=== PATIENT | female | born 1975 ===

== ENCOUNTER 2021-01-26 11:10 | Emergency (ER) | payer OTHER, SELFPAY ==
[2021-01-26 11:26] VITALS: BP 116/69; PULSE 63; RESP 18; TEMP 36.8; O2SAT 100; BMI 23.9
--- NOTE | 2021-01-26 12:14 | ED_ITS ---
HPI - Ear Problem General Chief complaint: Ear Problems Stated complaint: ear pain Time Seen by Provider: 01/26/21 12:13 Source: patient Limitations: no limitations History of Present Illness HPI Narrative: Patient presents complaining of right-sided ear pain. Patient also having some right-sided headache and sinus pressure and tenderness. Patient also states some slight nasal discharge. Patient has no prior history of ear infection. Patient denies history of diabetes. Pain is 6/10 symptoms moderate. No nausea vomiting sore throat fever chills chest pain shortness of breath at this time. Related Data Previous Rx's Medication Instructions Recorded amoxicillin 500 mg capsule 500 mg PO TID #30 cap 01/26/21 ibuprofen 600 mg tablet 600 mg PO TID PRN #30 tab 01/26/21 Allergies Allergy/AdvReac Type Severity Reaction Status Date / Time No Known Allergies Allergy Verified 01/26/21 11:26 [No Known Allergies*] Review of Systems Constitutional: Constitutional: Denies body ache(s), Denies chills, Denies fatigue, Denies fever(s) and Denies headache(s) Eyes: Eyes: Denies loss of vision ENT: Denies headache(s), Reports sinus pain and Denies sore throat Comments: Right-sided ear pain Cardiovascular: Cardiovascular: Denies chest pain and Denies dyspnea Respiratory: Respiratory: Denies dyspnea Gastrointestinal: Gastrointestinal: Denies nausea and Denies vomiting Neurologic: Denies headache(s) and Denies loss of vision Endocrine: Endocrine: Denies fatigue [facility] Social History Social History Advance Directives: No Advance Directives Information Provided: Yes Patient : No Physical Exam Vital Signs: Vital Signs: Last Vital Signs Temp 98.2 F 01/26/21 11:26 Pulse 63 01/26/21 11:26 Resp 18 01/26/21 11:26 BP 116/69 01/26/21 11:26 Pulse Ox 100 01/26/21 11:26 Body Mass Index 23.9 vital signs have been reviewed as normal and appeared to be correct. Blood pressure normal. Heart rate normal. Respiration rate normal. Temperature normal. Oxygen saturation normal. Appearance: Alert. Oriented X3. No acute distress. Head: Normal external exam. Normocephalic. Atraumatic. Eyes: PERRLA. EOMI. Conjunctiva and sclera normal. Eyelids normal. ENT: Pharynx normal. Uvula midline. Moist mucous membranes. No trismus noted. Right ear TM slightly dull minimal erythema or canal edema. Positive maxillary sinus tenderness right greater than left. Right mastoid nontender Neck: Soft full range of motion CVS: Heart regular rate and rhythm no murmurs and rubs Respiratory: Breath sounds are clear to auscultation bilaterally. No accessory muscle use noted. Back: Full range of motion noted. Skin: Skin warm and dry. Normal skin color. Normal skin turgor. No rashes/lesions/lacerations noted. Extremities: No lower extremity edema. Extremities exhibit normal range of motion. Extremities nontender. Neuro: Oriented X 3. No motor deficit. No sensory deficit. Reflexes normal. Course Course Course Narrative: Right otitis media Right otitis externa Sinusitis Viral syndrome URI Symptoms consistent with sinusitis versus a very early right otitis media. Will treat accordingly. No other complaints this time Discharge Plan Discharge Clinical Impression: Otitis media Qualifiers: Otitis media type: unspecified Chronicity: acute Qualified Code(s): H66.90 - Otitis media, unspecified, unspecified ear Patient Disposition: Home, Self-Care Instructions: Ear Infection (ED) Prescriptions: New amoxicillin 500 mg capsule 500 mg PO TID Qty: 30 RF: 0 ibuprofen 600 mg tablet 600 mg PO TID PRN (Reason: pain) Qty: 30 RF: 0 Print Language: [place] Citizen
== END 2021-01-26 12:39 | disposition home or self-care (01) ==
PROVIDERS: Emergency Provider Emergency Medicine; PCP Psychiatry & Neurology Neurology
DX: H66.91 Otitis media, unspecified, right ear (principal)
CPT/HCPCS: 99283

== ENCOUNTER 2021-04-01 10:26 | Emergency (ER) | payer OTHER, SELFPAY ==
[2021-04-01 11:17] VITALS: BP 136/59; PULSE 62; RESP 18; TEMP 36.9; O2SAT 100; BMI 23.3
[2021-04-01] MEDS: Ondansetron ODT 4 MG TAB.RAPDIS TRANSLINGU (11:20)
== END 2021-04-01 22:01 | disposition left against medical advice (07) ==
PROVIDERS: Emergency Provider Emergency Medicine
DX: R10.9 Unspecified abdominal pain (principal); R11.2 Nausea with vomiting, unspecified
CPT/HCPCS: 99282

== ENCOUNTER 2022-07-09 10:42 | Outpatient (REF) | payer MEDICAID, SELFPAY ==
--- NOTE | ~2022-07-09 | MM_ITS ---
EXAMINATION: MM SCREENING DIGITAL BREAST TOMOSYNTHESIS, BILATERAL CLINICAL INFORMATION: Screening. Asymptomatic. The lifetime risk of breast cancer based on the Tyrer-Cuzick Model is 15.3%. COMPARISON: Mammography: August 03, 2020 and studies dating back to February 28, 2017 TECHNIQUE: Digital breast tomosynthesis is performed in both the craniocaudal and mediolateral oblique views along with computer-aided detection (CAD). Synthesized 2D images are generated from the tomosynthesis. FINDINGS: There are scattered areas of fibroglandular density (ACR BI-RADS breast composition Category b). There are no new significant masses, abnormal calcifications, or other abnormalities. MM/MM tomosynthesis screening BI IMPRESSION: No significant changes ASSESSMENT: BI-RADS 1: Negative RECOMMENDATION: Routine annual mammography screening. This patient's information was entered into a reminder system with a target due date for their next mammogram.
== END 2022-07-09 10:43 | disposition home or self-care (01) ==
LOC: HO.MAMMO 10:42
PROVIDERS: Visit Provider Physician Assistant
DX: Z12.31 Encounter for screening mammogram for malignant neoplasm of breast (principal)
CPT/HCPCS: 77063; 77067

== ENCOUNTER 2023-09-05 11:18 | Outpatient (REF) | payer MEDICAID, SELFPAY | END 2023-09-05 11:19 | disposition home or self-care (01) | LOC: HO.MAMMO 11:18 | PROVIDERS: Visit Provider Physician Assistant | DX: Z12.31 Encounter for screening mammogram for malignant neoplasm of breast (principal) | CPT/HCPCS: 77063; 77067 ==

== ENCOUNTER → 2023-09-05 11:45 | Outpatient (BNV) | payer MEDICAID, SELFPAY | PROVIDERS: Visit Provider Radiology Diagnostic Radiology | DX: Z12.31 Encounter for screening mammogram for malignant neoplasm of breast (principal) | CPT/HCPCS: 77063; 77067 ==

== ENCOUNTER 2023-12-26 07:24 | Emergency (ER) | payer MEDICAID, SELFPAY ==
[2023-12-26 07:27] VITALS: BP 137/48; PULSE 58; RESP 20; TEMP 36.3; O2SAT 99; BMI 26.5
[2023-12-26 09:11] LABS: Influenza A PCR NEGATIVE (Negative); Influenza B PCR NEGATIVE (Negative); Resp Syncy Virus RNA Qual PCR NEGATIVE (Negative); SARS COV2 PCR INHOUSE NEGATIVE (Negative)
--- NOTE | 2023-12-26 10:33 | ED_ITS ---
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 Taking Motrin at home with minimal relief. No known sick contacts. Denies fever, chills, sore throat, cough, sputum production, headache, dizziness, ear pain/ discharge/ hearing changes. Related Data Previous Rx's ?Medication ?Instructions ?Recorded amoxicillin 500 mg capsule 500 mg PO TID #30 caps 01/26/21 ibuprofen 600 mg tablet 600 mg PO TID PRN pain #30 tabs 01/26/21 cetirizine 10 mg tablet (Zyrtec) 10 mg PO DAILY PRN allergy 12/26/23 symptoms #10 tabs fluticasone propionate 50 2 spray intranasal DAILY 7 days 12/26/23 mcg/actuation nasal #16 grams spray,suspension (Flonase Allergy Relief) Allergies Allergy/AdvReac Type Severity Reaction Status Date / Time No Known Allergies Allergy Verified 12/26/23 07:28 [No Known Allergies*] Review of Systems Review of Systems: Yes all other systems are reviewed and are negative PMFSH Past Medical History Attestation statement: The following information was validated with the patient. Source: old records reviewed and nursing notes reviewed Medical History No pertinent past medical history Social History Social History Advance Directives: No Advance Directives Information Provided: Yes Physical Exam Vital Signs: Vital Signs: Last Vital Signs Temp 97.4 F 12/26/23 11:04 Pulse 58 12/26/23 11:04 Resp 18 12/26/23 11:04 BP 137/48 L 12/26/23 11:04 Pulse Ox 99 12/26/23 11:04 O2 Del Method Room Air 12/26/23 11:04 BMI result Body Mass Index 26.5 Vital signs stable, afebrile General: Well appearing, in no acute distress. Skin: Warm, dry, intact. No rashes or lesions. Head: Normocephalic, atraumatic. TTP over b/l maxillary sinuses. EENT: Hearing is intact b/l. Conjunctiva clear. PERRLA. EOM intact. Moist mucous membranes.? Neck: Supple without LAD. Cardiac: Chest wall symmetric. RRR. Lungs: Normal respiratory effort without accessory muscle use. CTA bilaterally. No rales, rhonchi, or wheezes.? Ext: Upper and lower extremities atraumatic, without tenderness, deformity, swelling or erythema. Full ROM throughout. Neuro: AOx3. Normal speech. Sensation intact to light touch. NV intact distally. Ambulating with steady gait. Psych: Appropriate mood and affect. Responds appropriately to questions. Course Course Course Narrative: 1036 -- patient tested negative for COVID, flu, RSV. Strep throat unlikely. Centor criteria 0. no testing warranted at this time. > will send patient home with flonase and zyrtec for suspected rhinosinusitis. Patient has remained stable throughout ED visit today. Discussed worrisome signs and symptoms and when to return to the ED. All questions answered at this time. Patient is agreeable with disposition and stable for discharge. Medications Administered Discontinued Medications Generic Name Dose Route Start Last Admin Trade Name Freq PRN Reason Stop Dose Admin Ketorolac Tromethamine 30 mg 12/26/23 10:54 12/26/23 11:04 Ketorolac Tromethamine 30 Mg/Ml Vial IM 12/26/23 10:55 30 mg ONCE ONE Administration Medical Decision Making Medical Decision Making [facility] Narrative: 48 year old Jamaican speaking female with no significant pmhx presents to the ED today for evaluation of nasal congestion/ sinus pain x3 days. Vital signs stable, afebrile. She is nontoxic appearing in no acute distress. Noted nasal congestion on exam, tender to palpation over maxillary sinuses. No tenderness to palpation over frontal sinus. Bilateral EACs and TMs WNL. Posterior oropharynx WNL. Lungs clear. Differential diagnosis includes viral syndrome, allergic rhinitis, rhinosinusitis. Lower suspicion for bacterial sinusitis, abscess, osteo. Plan for viral serology, pain control, re-evaluation. Differential Diagnosis Differential Diagnoses: The differential diagnosis associated with the presentation includes As above Admission/Observation Not indicated Lab Data [facility] Lab Attestation statement: I reviewed the patient's lab results. As above Labs: Lab Results 12/26/23 Range/Units 08:12 Influenza Type A (PCR) NEGATIVE (Negative) Influenza Type B (PCR) NEGATIVE (Negative) RSV RNA Qual (PCR) NEGATIVE (Negative) SARS-CoV-2 RNA (RT-PCR) NEGATIVE (Negative) External Record Review External record reviewed: Inpatient record Prescription Management I considered prescription management with: Pain Medication (Tylenol, ibuprofen) and Other (Flonase, Zyrtec) Social Determinants Patient?s care significantly limited by Social Determinants of Health including: Other Social Determinant of Health Critical Care Time Critical Care Time Critical Care Time: No Discharge Plan Discharge Clinical Impression: Acute rhinosinusitis Patient Disposition: Home, Self-Care Instructions: Rhinosinusitis (ED) Additional Instructions: You tested negative for covid, flu, and rsv. Your exam is consistent with rhinosinusitis. Flonase nasal spray has been sent to your pharmacy. [place] 2 sprays into your nose daily x1 week. Do not use for longer than one week or you may experience rebound congestion. Zyrtec is an antihistamine that has been sent to your pharmacy. Take 1 tab daily as needed. I recommend you take 600mg ibuprofen every 6 hours or Tylenol 650mg every 6 hours as needed for pain. If needed, you can alternate these medications so that you take one medication every 3 hours. For example, at noon take ibuprofen, then at 3pm take Tylenol, then at 6pm take ibuprofen. Follow up with PCP if symptoms persist. Return with new or worsening symptoms. In the case of an emergency call 911. Prescriptions: New cetirizine [Zyrtec] 10 mg tablet 10 mg PO DAILY PRN (Reason: allergy symptoms) Qty: 10 0RF fluticasone propionate [Flonase Allergy Relief] 50 mcg/actuation s pray,suspension 2 spray intranasal DAILY 7 Days Qty: 16 0RF Rx Instructions: administer into each nostril No Action amoxicillin 500 mg capsule 500 mg PO TID Qty: 30 0RF ibuprofen 600 mg tablet 600 mg PO TID PRN (Reason: pain) Qty: 30 0RF Referrals: [facility] [place] Family Medicine [Provider Group] [facility] [place] [facility] [Provider Group] [facility] [place] [facility] [Provider Group] Interventions: ED Discharge Assessment Last Done: 12/26/23 11:04 Discharge Date/Time: 12/26/23 11:05 Print Language: [place]ican
[2023-12-26 11:04] VITALS: BP 137/48; PULSE 58; RESP 18; TEMP 36.3; O2SAT 99
[2023-12-26] MEDS: Ketorolac Tromethamine 30 MG/ML VIAL IM (11:04)
== END 2023-12-26 11:05 | disposition home or self-care (01) ==
PROVIDERS: Emergency Provider Emergency Medicine
DX: J01.90 Acute sinusitis, unspecified (principal); R09.81 Nasal congestion; R51.9 Headache, unspecified; Z03.818 Encounter for observation for suspected exposure to other biological agents ruled out
CPT/HCPCS: 0241U; 96372; 99283; 99284; J1885

== ENCOUNTER 2024-09-10 10:55 | Outpatient (REF) | payer MEDICAID, SELFPAY ==
--- OUTSIDE RECORDS SUMMARY | 2024-09-10 12:59 | XMS_ITS | Clinical Summary ---
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 Name Role Phone Nereyda Guerrero PA-C Primary Care Provider [phone] Source Comments PLEASE NOTE, if this patient is a minor, it may be UNLAWFUL to discuss sensitive information that is contained in these records (such as FAMILY PLANNING, MENTAL HEALTH or SUBSTANCE ABUSE) with the minor patient's parent or other person without the patient's specific authorization.[facility] Allergies No known active allergies Medications ciprofloxacin-hydr ocortisone (CIPRO HC OTIC) 0.2-1 % otic suspensionIndicati ons:Acute otitis externa of left ear, unspecified type Place 3 Drops into the left ear 2 (two) times daily 10 mL 3 Active meloxicam (MOBIC) 15 mg tabletIndications: Polyarthralgia,Chr onic midline low back pain without sciatica Take 1 Tablet by mouth once daily as needed for pain 90 Tablet 1 3 Active nicotine (NICODERM, STEP 1) 21 mg/24 hr patchIndications:T obacco use Place 1 Patch onto the skin once daily (every 24 hours) For 6 weeks, followed by 14 mg for 2 weeks and 7 mg for 2 weeks. 42 Patch 4 Active nicotine (NICODERM, STEP 2) 14 mg/24 hr patchIndications:T obacco use Place 1 Patch onto the skin once daily (every 24 hours) For 2 weeks, followed by 7 mg for 2 weeks (keep on hold until pt has completed 21 mg) 14 Patch 4 Active nicotine (NICODERM, STEP 3) 7 mg/24 hr patchIndications:T obacco use Place 1 Patch onto the skin once daily (every 24 hours) For 2 weeks. 14 Patch 4 Active nicotine polacrilex (COMMIT) 4 mg lozengeIndications :Tobacco use Dissolve 1 lozenge by mouth every 1-2 hours as needed for nicotine cravings (max 10 pieces per day) 72 Lozenge 2 4 Active nicotine polacrilex (COMMIT) [address] 1 Lozenge inside cheek every 2 to 4 (two to four) hours as needed for smoking cessation Weeks 1-6: Use 1 lozenge every 1-2 hours. Weeks 7-9: Use 1 lozenge every 2-4 hours. Weeks 10-12: Use 1 lozenge every 4-8 hours. (minimum: 9 lozenges/day for first 6 weeks; maximum: 20 pieces/day during entire regimen). 72 Lozenge 1 4 Active diclofenac sodium (VOLTAREN) 1 % gelIndications:Chr onic midline low back pain without sciatica Apply 2 g topically 2 (two) times daily 100 g 11 5 Active melatonin 3 mg tabletIndications: Primary insomnia Take 1 Tablet by mouth nightly at bedtime as needed for sleep 90 Tablet 3 5 Active lidocaine (LIDODERM) 5 % patchIndications:C hronic midline low back pain with bilateral sciatica Place 1 Patch onto the skin daily. Apply 1 patch to the affected area for a maximum of 12 hours, followed by removal for 12 hours. 30 Patch 5 Active cyclobenzaprine (FLEXERIL) 10 mg tabletIndications: Chronic midline low back pain with bilateral sciatica Take 1 Tablet by mouth 3 (three) times daily as needed for muscle spasms MAY CAUSE DROWSINESS, do not operate heavy machinery until you know the effects of this medication on you 90 Tablet 5 Active ondansetron ODT (ZOFRAN-ODT) 4 mg disintegrating tabletIndications: Gastroenteritis Take 1 Tablet by mouth every 8 (eight) hours as needed for nausea 12 Tablet 5 Active dicyclomine (BENTYL) 10 mg capsuleIndications :Gastroenteritis Take 1 Capsule by mouth 3 (three) times daily 30 Capsule 5 Active predniSONE 50 mg tabletIndications: Allergic rhinitis, unspecified seasonality, unspecified trigger Take 1 Tablet by mouth once daily 5 Tablet 5 Active diphenhydrAMINE (BENADRYL) 50 mg capsuleIndications :Allergic rhinitis, unspecified seasonality, unspecified trigger Take 1 Capsule by mouth nightly at bedtime as needed for allergies, itching or rhinitis 90 Capsule 5 Active Active Problems Problem Noted Date Diagnosed Date Tobacco use 01/15/2023 Functional constipation 07/11/2020 PTSD (post-traumatic stress disorder) 08/04/2019 Opioid use disorder, moderat e, on maintenance therapy ([facility]) 08/04/[address] scan of abdomen 12/20/2015 04/19/19 17 Overview (04/19/2016): Result type: CT Abdomen and Pelvis W/ Contrast Result date: December 20, 2015 21:36 Result status: Auth (Verified) Result title: CT Abdomen and Pelvis W/ Contrast Performed by: Harshad Denney MD on December 20, 2015 23:21 Verified by: Sharad Gonzalez MD on December 20, 2015 23:26 Encounter info: [id number], [facility], Marcel Obv, 12/20/2015 - 12/22/2015 * Final Report * Reason For Exam Pain RESULT: CT Abdomen and Pelvis W/ Contrast CT Abdomen and Pelvis W/ Contrast INDICATION: Pain CLINICAL QUESTION: Pancreatitis TECHNIQUE: Spiral CT through the abdomen and pelvis with IV contrast formatted in 3 planes. The study was performed without oral contrast. Weight-based protocol using automatic tube modulation was used to optimize exposure parameters. CTDIvol Body: 5.40 mGy, DLP Body: 278 mGy*cm. COMPARISON: None. FINDINGS: Lung Bases: Lung bases are clear. No pleural effusion. Liver: A focal area of low-attenuation along falciform ligament most likely represents focal fatty infiltration. The liver is otherwise unremarkable. Gallbladder: Unremarkable. Bile ducts: No biliary ductal dilation. Spleen: Normal in size and attenuation. Pancreas: Normal. Adrenal Glands: Normal. Kidneys and Ureters: No hydronephrosis. A 4 mm nonobstructing calculus is seen in the upper pole of the right kidney. A 2.6 cm cyst is seen in the upper pole of the right kidney. The left kidney is normal. Bladder: Normal. Stomach, Small bowel and Large Bowel: Normal. Appendix: Normal. Peritoneum, omentum and mesentery: No ascites or pneumoperitoneum. No omental or mesenteric lesions. Lymph nodes: No pathologically enlarged lymph nodes. Blood Vessels: Normal. No aneurysm. No evidence of venous thrombosis. Abdominal wall: Unremarkable. Reproductive organs: Unremarkable. Bones: No acute findings. No destructive bone lesions. A 1 cm sclerotic focus in the L5 vertebral body likely represents a bone island. Thoracic dextroscoliosis and normal lumbar levoscoliosis. IMPRESSION: 1. No acute abdominal or pelvic pathology. The pancreas appears normal. 2. Small nonobstructing calculus and a simple cyst in the upper pole of the right kidney. I have personally reviewed the images and I agree with this report. WSN: [id number] Signature Line Dictated By: Harshad Denney MD Dictated Date/Time: 12/20/15 11:21 p Reviewed By: Sharad Gonzalez MD Signed By: Sharad Gonzalez MD Signed Date/Time: 12/20/15 11:26 pm Transcribed By: LICHA Transcribed Date/Time: 12/20/15 11:[address] Abdomen and Pelvis W/ Contrast This document has an image Marijuana use 04/19/2016 H/O endoscopy 11/18/2014: ga stric mucosa with mild chronic inflammation, non specific, H. pylori negative 11/29/2014 Family history of colon canc er- grandfather and uncle (father's side) 04/30/2014 GERD (gastroesophageal reflux disease) 4 Immunizations Immunization Administration Dates Next Due INFLUENZA, SEASONAL, INJECTABLE 12/22/2015 PNEUMOCOCCAL CONJUGATE PCV 20 (Prevnar) 01/16/20 23 TDAP 01/15/2023 Family History Medical History Relation Name Comments Asthma Daughter 1 Asthma Daughter 2 Cancer Paternal Aunt Heart Problems Paternal Grandfather Arthritis Paternal Grandmother Hypertension Paternal Grandmother Cancer Paternal Uncle 1 colon Cancer Paternal Uncle 2 colon CA Asthma Son 1 Asthma Son 2 Asthma Son 3 Depression Neg Diabetes Neg High Cholesterol Neg Kidney disease Neg Mental illness Neg Stroke Neg Relation Name Status Comments Daughter 1 Daughter 2 Paternal Aunt Paternal Grandfather Paternal Grandmother Paternal Uncle 1 Paternal Uncle 2 Son 1 Son 2 Son 3 Social History Tobacco Use Types Packs/Day Years Used Date Smoking Tobacco: Every Day Cigarettes 0.3 22 Passive Smoke Exposure: Never Smokeless Tobacco: Current Tobacco Cessation:Ready to Q uit: Not Asked; Counseling Given: Not Answered Alcohol Use Standard Drinks/Week Comments No 0 (1 standard drink = 0.6 oz pur e alcohol) Social Connections Answer Date Recorded Connectedness 0 01/15/2023 Financial Resource Strain Answer Date R ecorded Financial Resource Strain 0 2022 Stress Answer Date Recorded Stress 0 01/15/2023 Physical Activity Answer Date Recorded Physical Activity 0 11/08/2018 Food Insecurity Answer Date Recorded Food 0 01/15/2023 Transportation Needs Answer Date Record ed Transportation 0 01/15/2023 Housing Stability Answer Date Recorded Housing 0 01/15/2023 Safety and Environment Answer Date Gorge rded Safety 0 01/15/2023 Utilities Answer Date Recorded Utilities 0 01/15/2023 Employment Answer Date Recorded Employment 0 11/08/2018 Comments No Sex and Gender Information Value Date Recorded Sex Assigned at Female 02/04/2017 5:20 PM PST Legal Sex Female 11:36 AM PDT Gender Identity Female 02/04/2017 5:20 PM PST Sexual Orientation Straight 02/04/2017 5: 20 PM PST Last Filed Vital Signs Vital Sign Reading Time Taken Comments Blood Pressure 144/87 06/04/2024 8:45 AM EDT Pulse 53 06/04/2024 8:45 AM EDT Temperature 36.8 C (98.2 F) 06/04/2024 8:45 AM EDT Respiratory Rate 16 06/04/2024 8:45 AM EDT Oxygen Saturation 99% 06/04/2024 8:45 AM EDT Inhaled Oxygen Concentration - - Weight 77.1 kg (170 lb) 06/04/2024 8:45 AM EDT Height 167.6 cm (5' 6 ) 04/09/2023 1:53 PM EST Body Mass Index 27.44 04/09/2023 1:53 PM EST Plan of Treatment Health Maintenance Due Date Last Done Comments HPV Screening 1975 Imm-Hepatitis B (1 of 3 - 19 + 3-dose series) 1994 CT Colonography 2020 Colonoscopy 2020 Flexible Sigmoidoscopy 2020 Annual Wellness (Adult): Indicated (All Coverage) 11/16/2023 11/15/2022, 06/19/2022, 02/04/2017 [id number] ( season) 2023 Anxiety Screening 12/11/2023 12/10/2022 Relationship Safety Screening/Counseling 01/16/2024 01/15/2023, 12/10/2022, 10/22/2022 FIT/gFOBT 02/28/2024 02/27/2023 Alcohol and Drug Screen 03/18/2024 01/16/20 23, 10/22/2022, 07/11/2020, Additional history exists Depression Annual Screen 03/18/2024 01/15/2023, 04/18 Tobacco Cessation Counseling (#1) 08/28/2024 Imm-Influenza (Season Ended) 11/16/202408/2015, 04/30/2014 (Declined) Hypertension Screening (#1) 06/04/2025 Breast Cancer Screening (Mammogram) 09/04/2025 09/05/2023, 09/05/2023, 07/09/2022, Additional history exists Pap Smear 11/15/2025 11/15/2022, 01/17, 04/30/2014 (Declined), Additional history exists Diabetes Screening 01/15/2026 01/15/2023, 1 , 06/25/2022, Additional history exists Colorectal Cancer Screening 02/27/2026 Fecal DNA 02/27/2026 02/27/2023 Lipid Screening 06/26/2027 06/25/2022, 04/18 (Declined) Cervical Cancer Screening 11/16/2027 Pap + HPV 11/16/2027 11/15/2022 Imm-DTaP/Tdap/Td (2 - Td or Tdap) 01/15/2033 023 HIV Screening Completed 01/15/2023 Hepatitis C Screening Completed 01/15/2023 , 07/18/2015, 04/30/2014 Imm-Pneumococcal Completed 01/15/2023 Cervical Ablation/Cold-Knife Conization Discontinued Cervical Cryotherapy Discontinued Colposcopy Discontinued Endometrial Biopsy Discontinued Excision/Leep Discontinued HPV Genotyping Discontinued Vaginal Pap Discontinued Vulvoscopy Discontinued Procedures Procedure Name Priority Date/Time Associated Diagnosis Comments OTHER ORDERS SCANNED DOCUMENT 06/15/2024 3:00 AM EDT MAMMO DIGITAL SCREEN ANA W CAD 3D Routine 09/05/2023 3:00 AM EDT Breast cancer screening by mammogram COLOGUARD Routine 02/27/2023 3:00 AM EST Colon cancer screening HIV 1/2 AG & AB W/RFLX (4TH GEN) Routine 01/15/2023 9:36 AM EDT Malaise and fatigue Elevated glucose DUB (dysfunctional uterine bleeding) HEPATITIS C AB W/RFLX HCV RNA, QT, RT PCR Routine 01/15/2023 9:36 AM EDT Malaise and fatigue Elevated glucose DUB (dysfunctional uterine bleeding) HEMOGLOBIN GLYCOSYLATED A1C Routine 01/15/2023 9:36 AM EDT Malaise and fatigue Elevated glucose DUB (dysfunctional uterine bleeding) THINPREP PAP & HPV MRNA E6/E7 RFLX HPV 16,18/[address]/NG Routine 11/15/2022 11:20 AM EDT Encounter for Papanicolaou smear of vagina as part of routine gynecological examination Encounter for screening for human papillomavirus (HPV) Screening for STDs (sexually transmitted diseases) LIPID PANEL Routine 06/25/2022 11:42 AM EDT Routine general medical examination at a health care facility Functional constipation Chronic midline low back pain without sciatica Tobacco use Marijuana use Family history of colon cancer- grandfather and uncle (father's side) Colon cancer screening Bone pain from Last 3 Months or Most Recently Relevant to Health Maintenance Results * OTHER ORDERS SCANNED DOCUMENT (06/15/2024 3:00 AM EDT) 06/15/2024 3:00 AM EDT us Nereyda Guerrero PA-C SCAN OTHER ORDERS Final Resu lt * MAMMO DIGITAL SCREEN ANA W CAD 3D (09/05/2023 3:00 AM EDT) 09/05/2023 3:00 AM EDT us Nereyda Guerrero PA-C IMG MAMMO Final Result [facility] Corporate Office [address], [address] [place] [address], * COLOGUARD (02/27/2023 3:00 AM EST) Stool Stool specimen / Unknown 02/27/2023 3:00 AM EST Nereyda Guerrero PA-C LAB BODY FLUIDS AND STOOLS A MBULATORY Final Result Performing Organization Address [facility] Co de Phone Number [employer] [address], [address] [facility] [id number] [place] [address], [place] [phone] * HEPATITIS C AB W/RFLX HCV RNA, QT, RT PCR (01/15/2023 9:36 AM EDT) HEPATITIS C ANTIBODY NON-REACT CUONG NON-REACT CUONG [facility] Comment: HCV antibody was non-reactive. There is no laboratory evidence of HCV infection. In most cases, no further action is required. However, if recent HCV exposure is suspected, a test for HCV RNA (test code 46969) is suggested. For additional information please refer to http://education.[employer]/faq/UUV10b1 (This link is being provided for informational/ educational purposes only.) Blood Blood / Unknown 01/15/2023 9 :36 AM EDT 01/15/2023 9:37 AM EDT Narrative [employer] - 01/17/2023 3:10 PM EDT PATIENT UNABLE TO VOID; ADVISED TO RETURN FOR COLLECTION. us Nereyda Guerrero PA-C LAB - BLOOD DRAW Edited Resu lt - Final Performing Organization Address City/[facility] Co de Phone Number [facility] [address] [address], [facility] [address] [place] [address] * HIV 1/2 AG & AB W/RFLX (4TH GEN) (01/15/2023 9:36 AM EDT) HIV AG/AB, 4TH GEN NON-REAC TIVE NON-REAC TIVE [facility] Comment: HIV-1 antigen and HIV-1/HIV-2 antibodies were not detected. There is no laboratory evidence of HIV infection. PLEASE NOTE: This information has been disclosed to you from records whose confidentiality may be protected by state law. If your state requires such protection, then the state law prohibits you from making any further disclosure of the information without the specific written consent of the person to whom it pertains, or as otherwise permitted by law. A general authorization for the release of medical or other information is NOT sufficient for this purpose. For additional information please refer to http://education.[employer]/faq/HII952 (This link is being provided for informational/ educational purposes only.) The performance of this assay has not been clinically validated in patients less than 2 years old. Blood Blood / Unknown 01/15/2023 9 :36 AM EDT 01/15/2023 9:37 AM EDT Narrative [employer] - 01/17/2023 3:10 PM EDT PATIENT UNABLE TO VOID; ADVISED TO RETURN FOR COLLECTION. Nereyda Guerrero PA-C LAB - BLOOD DRAW Final Resul t [facility] [address] [address], [employer] [address] [place] [address] * HEMOGLOBIN GLYCOSYLATED A1C (01/15/2023 9:36 AM EDT) Pathologist [facility] HEMOGLOBIN A1C 5.5 <5.7 % of total Hgb [facility] Comment: For the purpose of screening for the presence of diabetes: <5.7% Consistent with the absence of diabetes 5.7-6.4% Consistent with increased risk for diabetes (prediabetes) > or =6.5% Consistent with diabetes This assay result is consistent with a decreased risk of diabetes. Currently, no consensus exists regarding use of hemoglobin A1c for diagnosis of diabetes in children. According to [place] Diabetes Association (ADA) guidelines, hemoglobin A1c <7.0% represents optimal control in non- diabetic patients. Different metrics may apply to specific patient populations. Standards of Medical Care in Diabetes(ADA). Blood Blood / Unknown 01/15/2023 9 :36 AM EDT 01/15/2023 9:37 AM EDT Narrative [facility] - 01/17/2023 3:10 PM EDT PATIENT UNABLE TO VOID; ADVISED TO RETURN FOR COLLECTION. Nereyda Guerrero PA-C LAB - BLOOD DRAW Edited Resu lt - Final [facility] [address] [address], [facility] [address] [place] [phone] * THINPREP PAP & HPV MRNA E6/E7 RFLX HPV 16,18/[address]/NG (11/15/2022 11:20 AM EDT) CHLAMYDIA TRACHOMATIS RNA, TMA NOT DETECTED NOT DETECTED [facility] NEISSERIA GONORRHOEAE RNA, TMA NOT DETECTED NOT DETECTED [facility] COMMENT [facility] CLINICAL INFORMATION See Note [facility] Comment:ROUTINE EXAM LMP See Note [employer] Comment:10/01/2022 PREV. PAP See Note [facility] Comment:NONE GIVEN PREV. BX See Note [employer] Comment:NONE GIVEN SOURCE See Note [employer] Comment:Cervix STATEMENT OF ADEQUACY See Note [employer] Comment: Satisfactory for evaluation. Endocervical/transformation zone component present. INTERPRETATION/RESU LT See Note [facility] Comment: Cytology Results: Negative for intraepithelial lesion or malignancy. 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 Cervical sources are required for HPV testing. If a vaginal source from a patient who has had a total hysterectomy with removal of cervix was submitted, please contact the testing laboratory for alternative testing options. For additional information, please refer to http://[employer]/faq/IUE872v0 (This link if provided for information/ educational purposes only.) CYTOLOGY Cervix uteri structure / Unknown 11/15/2022 11:20 AM EDT 11/16/2022 10:05 AM EDT Narrative [facility] - 11/20/2022 8:49 AM EDT EXPLANATORY NOTE: The Pap is a screening test for cervical cancer. It is not a diagnostic test and is subject to false negative and false positive results. It is most reliable when a satisfactory sample, regularly obtained, is submitted with relevant clinical findings and history, and when the Pap result is evaluated along with historic and current clinical information. The analytical performance characteristics of this assay, when used to test SurePath(TM) specimens have been determined by [employer]. The modifications have not been cleared or approved by the FDA. This assay has been validated pursuant to the CLIA regulations and is used for clinical purposes. For additional information, please refer to https://[employer]/faq/URQ670 (This link is being provided for information/ educational purposes only.) Salbador Perez MD LAB - PATHOLOGY AND CYTOLOGY AMB ULATORY Final Result [facility] [address] [address], [facility] [address] [address] * (ABNORMAL) LIPID PANEL (06/25/2022 11:42 AM EDT) CHOLESTEROL, TOTAL 171 <200 mg/dL [facility] HDL CHOLESTEROL 45(L) > OR = 50 mg/dL [facility] TRIGLYCERIDES 91 <150 mg/dL [facility] LDL-CHOLESTEROL 107(H) 99 mg/dL (calc) [facility] Comment: Reference range: <100 Desirable range <100 mg/dL for primary prevention; <70 mg/dL for patients with CHD or diabetic patients with > or = 2 CHD risk factors. LDL-C is now calculated using the Kathryn calculation, which is a validated novel method providing better accuracy than the Friedewald equation in the estimation of LDL-C. Tex SS et al. ARIELLE. 2013;310(19): 1062-3381 (http://education.[employer]/faq/HWM336) CHOL/HDLC RATIO 3.8 <5.0 (calc) [facility] NON-HDL CHOLESTEROL 126 <130 mg/dL (calc) [facility] Comment: For patients with diabetes plus 1 major ASCVD risk factor, treating to a non-HDL-C goal of <100 mg/dL (LDL-C of <70 mg/dL) is considered a therapeutic option. Blood Blood / Unknown 06/25/2022 1 1:42 AM EDT 06/25/2022 11:42 AM EDT Narrative [facility] - 06/29/2022 4:01 PM EDT FASTING:YES PATIENT UNABLE TO VOID; ADVISED TO RETURN FOR COLLECTION. Nereyda Guerrero PA-C LAB - BLOOD DRAW Final Resul t [facility] [address] [address], [facility] [address] [address] from Last 3 Months or Most Recently Relevant to Health Maintenance Insurance [facility] [place] MEDICAID [facility] [place] [address] ACO Care Teams Wall Taper Helper Relationship Specialty Start Date End Date Nereyda Guerrero PA-C [address] [place] [phone] PCP - General Internal Medicine 03/12/14
== END 2024-09-10 10:56 | disposition home or self-care (01) ==
LOC: HO.MAMMO 10:55
PROVIDERS: PCP Physician Assistant; Visit Provider Physician Assistant
DX: Z12.31 Encounter for screening mammogram for malignant neoplasm of breast (principal)
CPT/HCPCS: 77063; 77067

== ENCOUNTER → 2024-09-10 11:30 | Outpatient (BNV) | payer MEDICAID, SELFPAY | PROVIDERS: PCP Physician Assistant; Visit Provider Internal Medicine | DX: Z12.31 Encounter for screening mammogram for malignant neoplasm of breast (principal) | CPT/HCPCS: 77063; 77067 ==